=== PATIENT | female | born 2000 | race Caucasian/White ===

== ENCOUNTER 2024-06-11 14:38 | Emergency (ER) | payer BC, SELFPAY ==
[2024-06-11 14:45] VITALS: BP 111/65; PULSE 100; TEMP 36.8; O2SAT 95; BMI 33.8
--- NOTE | 2024-06-11 15:18 | ED.GENADUL1 ---
HPI HPI - General Adult General Chief complaint: Headache Stated complaint: 27 WEEKS 5 DAYS COUGHING HEADACHE Time Seen by Provider: 06/11/24 14:52 Source: patient Mode of arrival: walk-in History of Present Illness HPI narrative: The patient recently had a upper respiratory tract infection with cough that is getting better, she is coming to the ER with a bilateral neck pain that she mentioned does not get any better until she pressed on her neck The patient is 29 weeks she is denying any other complaints Related Data Allergies Allergy/AdvReac Type Severity Reaction Status Date / Time No Known Drug Allergies Allergy Verified 06/11/24 14:50 Review of Systems ROS Status of ROS 10 or more systems reviewed and unremarkable except as noted in history and below PFSH PFSH Social History Little interest or pleasure in doing things: not at all Feeling down, depressed, or hopeless: not at all Exam Narrative Exam Narrative: Nurses notes and vital signs reviewed and patient is not hypoxic. General: Well-appearing and in no apparent distress. Skin: Warm, dry, no pallor noted. No rash. Head: Normocephalic, atraumatic. Neck: Supple, non-tender. Eye: Pupils are equal, round and EOMI. No scleral icterus. Ears, Nose, Mouth, and Throat: TM are clear, no nasal mucosal hypertrophy. Oral mucosa is moist, no posterior oropharynx erythema, uvula is mid-line Cardiovascular: Regular Rate and Rhythm without murmur, gallop or rub. Respiratory: No accessory muscle use or respiratory distress. Lungs are clear to auscultation, no wheezing, rales or rhonchi Chest Wall: no tenderness Back: No midline thoracic or lumbar vertebral tenderness. No CVA tenderness Musculoskeletal: normal ROM, no calf or popliteal tenderness, no lower extremity edema/swelling GI: Abdomen is soft, non-distended. Normal bowel sounds. No masses appreciated. No tenderness to palpation. No rebound, guarding, or rigidity noted. Neurological: A&O x4. No cranial nerve dysfunction observed. No truncal ataxia. Moves all extremities. Sensation intact. Psychiatric: Cooperative and interactive. Normal mood and affect. Constitutional Vital Signs, click to edit/add: Last Vital Signs Temp 98.3 F 06/11/24 14:45 Pulse 100 H 06/11/24 14:45 Resp 18 06/11/24 14:45 BP 111/65 06/11/24 14:45 Pulse Ox 95 06/11/24 14:45 O2 Del Method Room Air 06/11/24 14:45 Course Vital Signs Vital signs: Vital Signs Temperature 98.3 F 06/11/24 14:45 Pulse Rate 100 H 06/11/24 14:45 Respiratory Rate 18 06/11/24 14:45 Blood Pressure 111/65 06/11/24 14:45 Pulse Oximetry 95 06/11/24 14:45 Oxygen Delivery Method Room Air 06/11/24 14:45 Temperature 98.3 F 06/11/24 14:45 Pulse Rate 100 H 06/11/24 14:45 Respiratory Rate 18 06/11/24 14:45 Blood Pressure 111/65 06/11/24 14:45 Pulse Oximetry 95 06/11/24 14:45 Oxygen Delivery Method Room Air 06/11/24 14:45 Medical Decision Making MDM Narrative Medical decision making narrative: The patient evaluation shows no acute pathology right now the patient instructed about supportive care with the Tylenol The patient is to follow up with primary care physician in next 2-3 days or to return to the emergency department should any of the signs or symptoms worsen or new symptoms develop. The patient agrees with the following Diagnosis and Treatment plan and the patient will be discharged home. Discharge Plan Discharge Chief Complaint: Headache Clinical Impression: Neck pain Patient Disposition: Home, Self-Care Time of Disposition Decision: 15:19 Condition: Good Mode of Transportation: Private Vehicle Print Language: Kiswahili Instructions: Neck Pain (ED) Additional Instructions: Follow up with your family Referrals: Physician,Non-Staff, [Primary Care Provider] - 1 week Discharge Date/Time: 06/11/24 15:30
--- NOTE | 2024-06-11 15:19 | PC.NURSE ---
headache with positioning changes, pt c/o dull headache while in ER. Pt states and demonstrates how she relieves this headache at home, which is by pressing on bilat carotids. This nurse explains why pt should not use this method for headache relief.
== END 2024-06-11 15:30 | disposition home or self-care (01) ==
PROVIDERS: Emergency Provider Emergency Medicine
DX: O99.891 Other specified diseases and conditions complicating pregnancy (principal); M54.2 Cervicalgia; Z3A.29 29 weeks gestation of pregnancy
CPT/HCPCS: 99282